=== PATIENT | female | born 1950 | race Caucasian/White ===

== ENCOUNTER 2017-08-03 11:40 | Outpatient (CLI) ==
--- NOTE | 2017-08-03 14:04 | MRI ---
EXAM: MRI left shoulder without contrast. HISTORY: Left shoulder pain. Fall. No left shoulder surgery reported. TECHNIQUE: Using a local coil on a high field strength magnet multiplanar multisequence magnet reson ance imaging was performed of the left shoulder without intravenous or intra-articular gadolinium con trast. Examination of limited diagnostic quality secondary to decreased [id number]-ae-gqgta/resolution a s well as motion degradation. FINDINGS: I do not have prior radiographs of the left shoulder available for comparison at the time of this dictation. A Type I acromion. Coracoacromial ligament/arch intact with thickening. Left acromioclavicular join t degenerative arthrosis/osteoarthrosis. Deltoid musculature shows fatty infiltration. Free fluid s ubacromial/subdeltoid bursa. Muscle bulk of the rotator cuff shows no acute muscle strain or overt atrophy. Marked supraspinatus tendinosis. 9 mm slit-like area of insertional tear anterior supraspinatus tendon with bursal sided extent.. More posterior infraspinatus tendinosis to a lesser degree. I do not see a definitive full -thickness tear component. Posterior intact teres minor tendon fibers. Anterior intact subscapulari s tendon fibers. The long head of the biceps tendon shows intact fibers located in expected position within the bicipital groove and within normal limits signal intensity and morphology. The left humeral head within normal limit in morphology and seated. No left glenohumeral joint cente red subchondral bone marrow edema or bone erosions. Trace left glenohumeral joint effusion. Left gl enoid labrum grossly intact on this non-arthrographic examination.. IMPRESSION: Examination limited diagnostic quality secondary to decreased [id number]/resolution as well as motion degradation. Left acromioclavicular joint degenerative arthrosis/osteoarthrosis. Marked supraspinatus tendinosis. 9 mm slit-like area of insertional tear anteriorly with bursal side d extent. No definitive full-thickness tear component. Free fluid subacromial/subdeltoid bursa may r eflect an overlying degree bursitis and/or be sequelae of prior shoulder injection. Correlate clinic ally. Infraspinatus tendinosis to a lesser degree. Trace left glenohumeral joint effusion. Recommendation is obtainment and correlation with plain film radiographs of the left shoulder as none are available for comparison at the time of this dictation.
== END 2017-08-03 11:41 | disposition home or self-care (01) ==
LOC: RAD 11:40
PROVIDERS: ATTEND Nurse Practitioner
DX: M25.512 Pain in left shoulder (principal)

== ENCOUNTER 2018-12-21 08:05 | Outpatient (CLI) | payer OTHER ==
--- NOTE | 2018-12-21 09:50 | MRI ---
EXAM: MRI left knee without contrast. HISTORY: Acute left knee pain. No left knee surgery reported.. TECHNIQUE: Using a local extremity coil on a high field strength magnet multiplanar multisequence MR I was performed of the left knee without intravenous or intra-articular gadolinium contrast. FINDINGS: I do not have prior radiographs of the left knee available for comparison at the time of t his dictation. Within the medial compartment there is abnormal size and morphology root posterior horn medial menisc us compatible with tear. Some loss of hoop containment with slight extrusion of a portion of the med ial meniscal body. There is joint centered chondrosis and cartilage attenuation over the medial weig htbearing aspect of the medial compartment with joint centered subchondral bone marrow edema. Produc tive osteophyte formation. There is additionally chondrosis and cartilage ulceration over the tag and label cutter ior nonweight bearing medial femoral condyle with underlying subchondral edema. Within the lateral compartment lateral meniscus is intact without discrete surfacing meniscal tear. The lateral compartment cartilage congruent without focal underlying subchondral edema. Early produc tive osteophyte formation. Within the patellofemoral compartment the patella seated with intact medial and lateral patellar reti nacular attachment. Patellar chondrosis/chondromalacia patella with cartilage ulceration over the me dial facet. This is most evident over the superior pole. The trochlear groove cartilage relatively congruent without underlying subchondral edema. Early productive osteophyte formation. Small left effusion. No large osteochondral loose bodies. Prominent plica. Intact ACL and PCL liga mentous fibers. The extensor mechanism is intact. Prepatellar/pretibial superficial soft tissue [place] ma. Medial collateral ligament intact bowed medially.. Lateral collateral ligament complex as well as posterolateral corner intact. Small complex posterior joint extension/popliteal cyst. Surroundin g deep soft tissue edema. IMPRESSION: Tear root posterior horn medial meniscus. Some loss of hoop containment. No lateral me niscal tear identified. Changes of tricompartmental osteoarthrosis, medial compartment dominant with joint centered subchondr al bone marrow edema. Prominent patellar chondrosis/chondromalacia patella. Small left effusion. Prominent plica. Small complex posterior joint extension/popliteal cyst with s urrounding deep soft tissue edema. Intact cruciate and collateral ligaments. Recommendation is obtainment and correlation with plain film radiographs of the left knee as none are available for comparison at the time of this dictation.
== END 2018-12-21 08:06 | disposition home or self-care (01) ==
LOC: RAD 08:05
PROVIDERS: ATTEND Internal Medicine
DX: M25.562 Pain in left knee (principal)